=== PATIENT | female | born 1945 | race African-American/Black ===

== ENCOUNTER 2022-10-29 09:48 | Emergency (ER) | payer MEDICAID, MEDICARE, OTHER ==
[~2022-10-29] VITALS: Ht 157.5 cm; Wt 76.0 kg
[~2022-10-29 09:48] MED LIST: HYDR-4833 PO; IBUP-1454 PO; LOS50T PO; LOVA40TA72 PO; OMEP20CA74 OR; TRIA37.577 PO
[2022-10-29 10:36] VITALS: BP 159/76
[2022-10-29] MEDS ORDERED: BENZ200C64 PO (10:52)
[2022-10-29] MEDS ORDERED: PRED20TA2 PO ×3 (10:52→10:53)
[2022-10-29] MEDS ORDERED: AZIT500T66 PO (10:52)
[2022-10-29] MEDS ORDERED: ALBU108A5 IN (10:52)
== END 2022-10-29 10:57 | disposition home or self-care (01) ==
LOC: ER 09:48
DX: J20.9 Acute bronchitis, unspecified (principal); M19.90 Unspecified osteoarthritis, unspecified site; E78.5 Hyperlipidemia, unspecified; I10 Essential (primary) hypertension
CPT/HCPCS: 71045